=== PATIENT | male | born 1990 | race Caucasian/White ===

== ENCOUNTER 2017-03-25 22:53 | Emergency (ER) | payer BC ==
[2017-03-25] MEDS ORDERED: Sulfamethoxazole/Trimethoprim 800-160 MG Tab PO ONE (23:09)
--- NOTE | 2017-03-25 23:13 | EDM.PDOC ---
ED HPI GENERAL MEDICAL PROBLEM - General Chief Complaint: Respiratory Problem Stated Complaint: SORE THROAT Time Seen by Provider: 03/25/17 23:00 Source of Information: Reports: Patient, RN History Limitations: Reports: No Limitations - History of Present Illness INITIAL COMMENTS - FREE TEXT/NARRATIVE: 26 yo male here with cough, rhinorrhea and R eye drainage/redness. Some sore throat. No fever. Had a flu shot. His infant son recently had similar sx's. Onset: Gradual Onset Date: 03/21/17 Duration: Day(s):, Getting Worse Location: Reports: Face, Neck (throat, R eye, nose) Quality: Reports: Burning Severity: Moderate Improves with: Reports: Medication Worsens with: Reports: Other (time) Context: Reports: Sick Contact Associated Symptoms: Reports: Cough. Denies: Fever/Chills, Nausea/Vomiting, Shortness of Breath Treatments NOZZLE [employer]ER: Reports: Other (see below) (various OTC agents) - Related Data Allergies Allergy/AdvReac Type Severity Reaction Status Date / Time codeine Allergy Rash Verified 03/25/17 23:08 Home Meds: Home Meds Naproxen 500 mg PO DAILY 03/25/17 [History] Sulfamethoxazole/Trimethoprim [Bactrim Ds Tablet] 1 each PO BID #20 tablet 03/25 [Rx] ED ROS GENERAL - Review of Systems Review Of Systems: See Below Constitutional: Reports: No Symptoms HEENT: Reports: Eye Discharge (R eye), Rhinitis, Throat Pain. Denies: Throat Swelling Respiratory: Reports: Cough. Denies: Shortness of Breath, Wheezing, Pleuritic Chest Pain, Hemoptysis Cardiovascular: Reports: No Symptoms GI/Abdominal: Reports: No Symptoms : Reports: No Symptoms Musculoskeletal: Reports: No Symptoms Skin: Reports: No Symptoms Neurological: Reports: No Symptoms Psychiatric: Reports: No Symptoms ED EXAM, GENERAL - Physical Exam Exam: See Below Exam Limited By: No Limitations General Appearance: Alert, WD/WN, No Apparent Distress Eye Exam: Right Eye: Conjunctival Injection Ears: Normal External Exam, Normal Canal, Hearing Grossly Normal, Normal TMs Ear Exam: Bilateral Ear: Auricle Normal, Canal Normal, TM normal Nose: No Blood, Nasal Drainage Throat/Mouth: Normal Inspection, Normal Lips, Normal Oropharynx, Normal Voice, No Airway Compromise Head: Atraumatic, Normocephalic Neck: Normal Inspection, Supple, Non-Tender Respiratory/Chest: No Respiratory Distress, Lungs Clear, Normal Breath Sounds, No Accessory Muscle Use Cardiovascular: Regular Rate, Rhythm Extremities: Normal Inspection Neurological: Alert, Oriented, CN II-XII Intact, Normal Cognition, No Motor/ Sensory Deficits Psychiatric: Normal Affect, Normal Mood Skin Exam: Warm, Dry, Intact, Normal Color, No Rash Lymphatic: No Adenopathy Course - Orders/Labs/Meds Meds: Medications Discontinued Medications Generic Name Dose Route Start Last Admin Trade Name Kevin PRN Reason Stop Dose Admin Trimethoprim/Sulfamethoxazole 1 tab 03/25/17 23:09 03/25/17 23:15 Septra Ds PO 03/25/17 23:10 1 tab ONETIME ONE Administration Departure - Departure Time of Disposition: 23:26 Disposition: Home, Self-Care 01 Condition: Good Clinical Impression: Acute sinusitis Qualifiers: Sinusitis location: maxillary Recurrence: non-recurrent Qualified Code(s): J01.00 - Acute maxillary sinusitis, unspecified Conjunctivitis Qualifiers: Conjunctivitis type: other mucopurulent Laterality: right Qualified Code(s): H10.021 - Other mucopurulent conjunctivitis, right eye - Discharge Information Prescriptions: Sulfamethoxazole/Trimethoprim [Bactrim Ds Tablet] 1 each PO BID #20 tablet Instructions: Sinusitis, Adult, [id number] Referrals: Fabricio Montalvo MD [Primary Care Provider] - Forms: ED Department Discharge Additional Instructions: Take Bactrim DS every 12 hrs. Wash your hands often with soap and water to reduce the risk of spead. Acetaminophen and/or ibuprofen as needed for pain relief. Recheck in the clinic if not improving.
== END 2017-03-25 23:20 | disposition home or self-care (01) ==
LOC: FB.ED 22:53
DX: J01.00 Acute maxillary sinusitis, unspecified (principal); H10.021 Other mucopurulent conjunctivitis, right eye; Z88.5 Allergy status to narcotic agent; Z79.899 Other long term (current) drug therapy
CPT/HCPCS: 99283; A9270